=== PATIENT | female | born 1955 | race Hispanic/Latino ===

== ENCOUNTER 2018-11-23 06:50 | Day surgery (SDC) | payer MEDICARE ==
[~2018-11-23] VITALS: Ht 160 cm; Wt 83.9 kg
[~2018-11-23 06:50] MED LIST: SODIUM CHLORIDE 0.9% 1000ML 1,000 ML IV ONE
[2018-11-23 07:36] VITALS: BP 123/65
[2018-11-23] MEDS ORDERED: DEXL60CA3 PO (08:05)
[2018-11-23] MEDS ORDERED: METO25TA6 PO (08:05)
[2018-11-23] MEDS ORDERED: CAND4TAB3 PO (08:05)
[2018-11-23] MEDS ORDERED: CLONAZEPAM (08:05)
[2018-11-23] MEDS ORDERED: PROPOFOL 10 MG/ML 20ML VIAL IV ONE (09:48)
[2018-11-23 09:57] VITALS: BP 102/55
[2018-11-23 10:01] VITALS: BP 95/65
[2018-11-23 10:06] VITALS: BP 111/60
[2018-11-23 10:11] VITALS: BP 116/65
== END 2018-11-23 10:31 | disposition home or self-care (01) ==
LOC: ENDO 06:50 → DAH 06:50 → ENDO 10:31
PROVIDERS: ATTEND Internal Medicine Gastroenterology
DX: K29.50 Unspecified chronic gastritis without bleeding (principal); K44.9 Diaphragmatic hernia without obstruction or gangrene; E03.9 Hypothyroidism, unspecified; F41.9 Anxiety disorder, unspecified; F32.9 Major depressive disorder, single episode, unspecified; K21.9 Gastro-esophageal reflux disease without esophagitis; I10 Essential (primary) hypertension; Z79.899 Other long term (current) drug therapy; Z90.710 Acquired absence of both cervix and uterus; Z90.49 Acquired absence of other specified parts of digestive tract; Z98.890 Other specified postprocedural states; Z72.89 Other problems related to lifestyle; Z82.49 Family history of ischemic heart disease and other diseases of the circulatory system; Z82.3 Family history of stroke
CPT/HCPCS: 43239; 88305; 88342; 93005; A4606; J2704; J7030

== ENCOUNTER → 2020-05-31 | Outpatient (CLI) | payer MEDICARE ==
[~2020-05-31] MED LIST changes: +CAND4TAB3 PO; +CLONAZEPAM; +DEXL60CA3 PO; +METO25TA6 PO; -SODIUM CHLORIDE 0.9% 1000ML 1,000 ML IV ONE
== END | disposition home or self-care (01) ==
LOC: RAH 09:31
PROVIDERS: ATTEND Internal Medicine Gastroenterology
DX: K44.9 Diaphragmatic hernia without obstruction or gangrene (principal); K21.00 Gastro-esophageal reflux disease with esophagitis, without bleeding; R13.10 Dysphagia, unspecified
CPT/HCPCS: 74240

== ENCOUNTER → 2024-05-31 | Outpatient (CLI) | payer MEDICARE ==
[~2024-05-31] MED LIST changes: +CAND4TAB11 PO; -CAND4TAB3 PO; +IOHEXOL-350 75 ML VIAL IV ONE
--- NOTE | 2024-05-31 16:54 | HMCIMG ---
CTA BILATERAL UPPER EXTREMITY RUNOFF. CT RECONSTRUCTIONS. INDICATION: Peripheral vascular disease TECHNIQUE: Noncontrast 3 mm slices through the bilateral upper extremities were performed followed by thin section axial CT images through the bilateral upper extremities following the administration of 125 mL of Omnipaque 350 contrast. Coronal and sagittal multiplanar reformatted images as well as 3 volume-rendered images of the abdominal aorta and bilateral lower extremity vessels were submitted for further interpretation.] CT was performed with one or more of the following dose reduction techniques: Automated exposure control, adjustment of the mA and/or kV according to patient size, or use of iterative reconstruction technique. FINDINGS/IMPRESSION: Normal flow along the bilateral carotid and vertebral arterial systems, including within the visible major intracranial vessels. 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 Chronically occluded right subclavian, axillary, and brachial arteries until reconstitution at the level of the normal-appearing, but slightly diminutive, distal right brachial artery via collaterals, including diminished flow within the barely visible proximal right radial and ulnar as well as interosseous arteries, which are not seen beyond this level.
== END | disposition home or self-care (01) ==
LOC: RAH 12:10
PROVIDERS: ATTEND Internal Medicine Cardiovascular Disease
DX: I73.9 Peripheral vascular disease, unspecified (principal)
CPT/HCPCS: 73206; Q9967 ×2